=== PATIENT | male | born 1975 | race Caucasian/White ===

== ENCOUNTER 2018-07-19 17:56 | Emergency (ER) | payer BC ==
[~2018-07-19] VITALS: Ht 182.9 cm; Wt 83.0 kg
[2018-07-19] MEDS ORDERED: SODIUM CHLORIDE 0.9% 1,000 ML IV ONE (18:45)
[2018-07-19 20:07] LABS: CHLORIDE 104 mEq/L (98-107)
[2018-07-19 20:08] LABS: BASOPHILS % 0.8 % (0.0-2.0); EOSINOPHILS % 0.2 % (0.0-5.0); HEMATOCRIT. 44.6 % (42.0-52.0); HEMOGLOBIN. 14.8 g/dL (14.0-18.0); LYMPHOCYTES % 13.7 % (20.0-50.0); MEAN CORPUSCULAR HEMOGLOBIN 26.1 pg (28.0-32.0); MEAN CORPUSCULAR VOLUME 78.9 fL (80.0-94.0); MEAN PLATELET VOLUME 8.2 fl (7.4-10.4); MONOCYTES % 6.3 % (2.0-8.0); PLATELET 204 x1000/uL (130-400); RED BLOOD CELL COUNT 5.66 mill/uL (4.7-6.1); RED CELL DISTRIBUTION WIDTH 13.6 % (11.6-14.6)
[2018-07-19 20:58] VITALS: BP 148/91
== END 2018-07-19 20:58 | disposition home or self-care (01) ==
LOC: ER 17:56
DX: S82.492A Other fracture of shaft of left fibula, initial encounter for closed fracture (principal); R55 Syncope and collapse; R42 Dizziness and giddiness; F41.9 Anxiety disorder, unspecified; X58.XXXA Exposure to other specified factors, initial encounter; Y93.89 Activity, other specified; Y92.89 Other specified places as the place of occurrence of the external cause; Y99.8 Other external cause status; Z98.84 Bariatric surgery status
CPT/HCPCS: 29515; 36415; 73610; 80053; 84484; 85025; 93005; 96360; 99284; J7030; Z7610